=== PATIENT | female | born 1945 | race Caucasian/White ===

== ENCOUNTER → 2017-04-25 | Outpatient (CLI) | payer MEDICARE ==
[~2017-04-25] MED LIST: MECL25 PO; PREMPRO; WELLBUTRIN; [UNRECOGNIZED DRUG - REMARK]
== END | disposition home or self-care (01) ==
LOC: LAB 17:08
PROVIDERS: Hospitalist
DX: Z12.4 Encounter for screening for malignant neoplasm of cervix (principal)
CPT/HCPCS: G0145

== ENCOUNTER → 2017-12-14 | Outpatient (CLI) | payer MEDICARE ==
[2017-12-14 17:24] LABS: BASOPHILS ABSOLUTE AUTO 0.05 K/mm3 (0.00-0.23); BASOPHILS PERCENT AUTO 1 % (0-2); EOSINOPHILS ABSOLUTE AUTO 0.17 K/mm3 (0.00-0.68); EOSINOPHILS PERCENT AUTO 2 % (0-6); Hematocrit 37.2 % (33.0-51.0); Hemoglobin 12.1 g/dL (11.5-16.0); IMMATURE GRAN ABSOLUTE AUTO 0.03 K/mm3 (0.00-0.10); IMMATURE GRAN PERCENT AUTO 0 % (0-1); LYMPHOCYTES ABSOLUTE AUTO 2.55 K/mm3 (0.84-5.20); LYMPHOCYTES PERCENT AUTO 27 % (21-46); MONOCYTES ABSOLUTE AUTO 0.91 K/mm3 (0.16-1.47); MONOCYTES PERCENT AUTO 10 % (4-13); Mean Corpuscular HGB 29.5 pg (26.0-34.0); Mean Corpuscular HGB Conc 32.5 g/dL (31.5-36.5); Mean Corpuscular Volume 91 fL (80-100); Mean Platelet Volume 11.1 fL (9.1-12.4); NEUTROPHILS ABSOLUTE AUTO 5.65 K/mm3 (1.96-9.15); NEUTROPHILS PERCENT AUTO 61 % (41-73); Platelet Count 261 K/mm3 (150-400); RDW Coefficient Variation 13.5 % (11.7-14.2); RDW Standard Deviation 45.6 fL (35.1-46.3); White Blood Cell Count 9.36 K/mm3 (4.00-11.30)
== END ==
LOC: LAB 17:13 → LAB SHORT 17:13
PROVIDERS: Hospitalist
DX: R59.0 Localized enlarged lymph nodes (principal)
CPT/HCPCS: 85025; 85651

== ENCOUNTER 2019-04-19 13:03 | Day surgery (SDC) | payer MEDICARE ==
[~2019-04-19] VITALS: Ht 167.6 cm; Wt 69.9 kg
[~2019-04-19 13:03] MED LIST changes: +ACYC800 PO; +ALBU90OI INH; +Aspirin EC81 MG PO; +Omega 3 1,0001 EACH PO
== END 2019-04-19 15:10 | disposition home or self-care (01) ==
LOC: ORSCSDS 13:03
PROVIDERS: Surgery
PROC: 0DJD8ZZ Inspection of Lower Intestinal Tract, Via Natural or Artificial Opening Endoscopic (ICD-10-PCS; principal; 2019-04-19 14:15)
DX: R19.4 Change in bowel habit (principal); I95.9 Hypotension, unspecified; Z87.891 Personal history of nicotine dependence; J45.909 Unspecified asthma, uncomplicated; N18.3 Chronic kidney disease, stage 3 (moderate); E78.5 Hyperlipidemia, unspecified; Z79.82 Long term (current) use of aspirin; Z79.899 Other long term (current) drug therapy
CPT/HCPCS: J2704; J7120

== ENCOUNTER 2019-09-06 07:48 | Day surgery (SDC) | payer MEDICARE ==
[~2019-09-06] VITALS: Ht 167.6 cm; Wt 70.5 kg
[~2019-09-06 07:48] MED LIST changes: +ACYC200 PO; +ALPR.5 PO; +DONEPEZIL HCL10 MG PO; +ERGO50000 PO; +Estrace Vagin42.5 GM PV; +METR59TL; +PRAHYD1AE; +Sudogest30 MG PO
[2019-09-06] MEDS ORDERED: NORTHERA100 MG PO ×2 (09:12→09:13)
--- NOTE | 2019-09-06 15:07 | NUR ---
PT UP TO BATHROOM WITH SBA. R GROIN SITE STABLE. BACK TO BED AND GETTING DRESSED. GROIN SITE REMAINS STABLE T/O. DISCHARGE GONE OVER WITH PT AND PT VERBALIZES UNDERSTANDING. SALINE LOCK OUT WITH CATHETER INTACT. PT DISCHARGED PER W/C WITH 1 STAFF.
== END 2019-09-06 15:30 | disposition home or self-care (01) ==
LOC: MHTC 07:48
DX: I70.1 Atherosclerosis of renal artery (principal); Q61.01 Congenital single renal cyst; N18.3 Chronic kidney disease, stage 3 (moderate); E78.5 Hyperlipidemia, unspecified; I71.4 Abdominal aortic aneurysm, without rupture; Z87.891 Personal history of nicotine dependence; Z88.8 Allergy status to other drugs, medicaments and biological substances; Z79.82 Long term (current) use of aspirin; Z79.899 Other long term (current) drug therapy
CPT/HCPCS: 36252; 37236; 76937; 99152; 99153; A9270-GY; C1760; C1769; C1876; C1887; C1894; J1644; J2250; J3010; J7030; Q9967

== ENCOUNTER → 2020-02-26 | Outpatient (CLI) | payer MEDICARE ==
[~2020-02-26] MED LIST changes: +CLOP75 PO; -METR59TL; +METR59TL TOP; +MYRBETRIQ25 MG PO; +NORTHERA100 MG PO
== END | disposition home or self-care (01) ==
LOC: LAB 18:29 → LAB SHORT 18:29
DX: E55.9 Vitamin D deficiency, unspecified (principal); E53.8 Deficiency of other specified B group vitamins; R41.3 Other amnesia
CPT/HCPCS: 82306; 82607; 85651; 86592

== ENCOUNTER 2020-03-13 06:19 | Day surgery (SDC) | payer MEDICARE ==
[~2020-03-13] VITALS: Ht 167.6 cm; Wt 70.4 kg
--- NOTE | 2020-03-13 09:46 | NUR ---
PT RETURNED TO RECOVERY ROOM IN BED. LEFT RADIAL TR BAND SITE SOFT NON-TENDER WITH NO HEMATOMA, NO PULSATILE BLEEDING AND WRIST BOARD IN PLACE. RIGHT FEMORAL GROIN SITE SOFT NON-TENDER WITH NO HEMATOMA, NO BLEEDING AND INTACT DRESSING. RIGHT DP 2+. CALL LIGHT IN REACH.
--- NOTE | 2020-03-13 09:51 | NUR ---
PT EASILY AWAKENED; PT DENIES CHEST PAIN.
--- NOTE | 2020-03-13 10:31 | NUR ---
PT UNABLE TO VOID ON BED BREWER.
--- NOTE | 2020-03-13 10:44 | NUR ---
PT EATING BREAKFAST. NO CHANGES TO L TR BAND SITE OR R GROIN SITE EXCEPT PT DESCRIBE "SORENESS" R GROIN SITE BUT DENIES ANY SHARP BACK/FLANK PAIN. HOB ELEVATED.
--- NOTE | 2020-03-13 11:17 | NUR ---
PT HAD WALNUT-SIZED HEMATOMA RIGHT GROIN; ANGELINE GEORGE HELD MANUAL PRESSURE FOR FIVE MINUTES - R GROIN HEMATOMA RESOLVED. NO CHANGES TO LEFT TR BAND RADIAL SITE. R DP 2+ PULSE; PT DENIES ANY BACK/FLANK PAIN.
--- NOTE | 2020-03-13 11:31 | NUR ---
9 CC OF AIR REMOVED FROM LEFT TR BAND OVER 9 MIN TO NOW DEFLATED LEFT TR BAND. DISCHARGE INSTRUCTIONS REVIEWED AND ALL QUESTIONS ANSWERED. NO CHANGES TO RIGHT GROIN SITE.
--- NOTE | 2020-03-13 11:41 | NUR ---
PT UP TO BEDSIDE COMMODE TO VOID.
--- NOTE | 2020-03-13 12:55 | NUR ---
DEFLATED LEFT TR BAND REMOVED AND POLYMEM PLACED OVER LEFT RADIAL SITE WITH WRIST BOARD IN PLACE. NO CHANGES TO L RADIAL OR R GROIN SITES. PT AMBULATED TO BR TO VOID. 20 G IV DISCONTINUED FROM RIGHT AC WITH INTACT CANNULA. PT ESCORTED OUT VIA WHEELCHAIR ESCORT.
== END 2020-03-13 12:50 | disposition home or self-care (01) ==
LOC: MHTC 06:19
DX: I70.8 Atherosclerosis of other arteries (principal); I70.1 Atherosclerosis of renal artery; I71.4 Abdominal aortic aneurysm, without rupture; N18.30 Chronic kidney disease, stage 3 unspecified; E78.5 Hyperlipidemia, unspecified; D63.1 Anemia in chronic kidney disease; N25.81 Secondary hyperparathyroidism of renal origin; J45.909 Unspecified asthma, uncomplicated; G25.81 Restless legs syndrome; E55.9 Vitamin D deficiency, unspecified; Z88.8 Allergy status to other drugs, medicaments and biological substances; Z79.02 Long term (current) use of antithrombotics/antiplatelets; Z79.899 Other long term (current) drug therapy; Z91.09 Other allergy status, other than to drugs and biological substances; Z79.82 Long term (current) use of aspirin
CPT/HCPCS: 36140; 75710; 76937; 99152; 99153; C1760; C1769; C1887; C1894; J1644; J2250; J3010; J7030; Q9967

== ENCOUNTER 2020-05-01 06:26 | Day surgery (SDC) | payer OTHER ==
[~2020-05-01] VITALS: Ht 167.6 cm; Wt 69.0 kg
--- NOTE | 2020-05-01 13:14 | NUR ---
DISCHARGE PT REMAINED A&OX3 AND DENIED ANY PAIN DURING RECOVERY. L RADIAL SITE TR BAND REMOVED-CLOTH DOT AND WHITE BOARD IN PLACE.-CDI NO HEMATOMA NOTED. IV DC'D WITH CANULA IN TACT. PT ABLE TO ABULATE TO RESTROOM WITH STEADY GAIT. DISCHARGE PAPERWORK GONE OVER WITH PT. PT VERBALLY STATED THE UNDERSTANDING OF THE DISCHARGE EDUCATION AND DENIED ANY QUESTIONS AT THIS TIME. PT WHEELED OUT BY DORIS Rivera RN. TO PRIVATE CAR.
== END 2020-05-01 13:35 | disposition home or self-care (01) ==
LOC: MHTC 06:26
DX: I77.1 Stricture of artery (principal); I48.91 Unspecified atrial fibrillation; I08.0 Rheumatic disorders of both mitral and aortic valves
CPT/HCPCS: 37236; 75710; 76937; 99152; 99153; C1769; C1876; C1887; C1894; J1644; J2250; J3010; J7030; J7050; Q9967

== ENCOUNTER 2020-05-14 07:19 | Day surgery (SDC) | payer OTHER ==
[~2020-05-14] VITALS: Ht 170.2 cm; Wt 70.2 kg
[2020-05-14] MEDS ORDERED: ESCI10 (07:45)
== END 2020-05-14 08:57 | disposition home or self-care (01) ==
LOC: ORSCSDS 07:19
PROVIDERS: Ophthalmology
PROC: 08RJ3JZ Replacement of Right Lens with Synthetic Substitute, Percutaneous Approach (ICD-10-PCS; principal; 2020-05-14 08:30)
DX: H25.11 Age-related nuclear cataract, right eye (principal); E78.5 Hyperlipidemia, unspecified; J45.909 Unspecified asthma, uncomplicated; N18.9 Chronic kidney disease, unspecified; Z87.891 Personal history of nicotine dependence; Z79.899 Other long term (current) drug therapy
CPT/HCPCS: J2001; J2250; J3010; J3301; J7040; V2632

== ENCOUNTER → 2020-05-21 | Outpatient (CLI) | payer OTHER ==
[~2020-05-21] MED LIST changes: +ESCI10
[2020-05-21 16:00] LABS: Bun/Creatinine Ratio 15.7 (12.0-20.0); Calcium, Blood 8.8 mg/dL (8.5-10.1); Creatinine, Blood 1.21 mg/dL (0.40-1.00); Potassium, Blood 4.2 mmol/L (3.5-5.5)
== END | disposition home or self-care (01) ==
LOC: LAB SHORT 14:29 → LAB 14:29
PROVIDERS: Hospitalist
DX: G45.9 Transient cerebral ischemic attack, unspecified (principal)
CPT/HCPCS: 80048

== ENCOUNTER → 2020-08-21 | Outpatient (CLI) | payer OTHER ==
[2020-08-22 09:47] LABS: BASOPHILS ABSOLUTE AUTO 0.06 K/mm3 (0.00-0.23); BASOPHILS PERCENT AUTO 1 % (0-2); EOSINOPHILS ABSOLUTE AUTO 0.24 K/mm3 (0.00-0.68); EOSINOPHILS PERCENT AUTO 2 % (0-6); Hematocrit 39.6 % (33.0-51.0); Hemoglobin 12.7 g/dL (11.5-16.0); IMMATURE GRAN ABSOLUTE AUTO 0.11 K/mm3 (0.00-0.10); IMMATURE GRAN PERCENT AUTO 1 % (0-1); LYMPHOCYTES ABSOLUTE AUTO 1.73 K/mm3 (0.84-5.20); LYMPHOCYTES PERCENT AUTO 14 % (21-46); MONOCYTES ABSOLUTE AUTO 1.09 K/mm3 (0.16-1.47); MONOCYTES PERCENT AUTO 9 % (4-13); Mean Corpuscular HGB 29.1 pg (26.0-34.0); Mean Corpuscular HGB Conc 32.1 g/dL (31.5-36.5); Mean Corpuscular Volume 91 fL (80-100); Mean Platelet Volume 11.7 fL (9.1-12.4); NEUTROPHILS ABSOLUTE AUTO 9.07 K/mm3 (1.96-9.15); NEUTROPHILS PERCENT AUTO 74 % (41-73); Platelet Count 290 K/mm3 (150-400); RDW Coefficient Variation 13.9 % (11.7-14.2); RDW Standard Deviation 46.8 fL (35.1-46.3); Red Blood Cell Count 4.36 M/mm3 (3.80-5.20)
== END ==
LOC: LAB 13:36 → LAB SHORT 13:36
PROVIDERS: Hospitalist
DX: J33.9 Nasal polyp, unspecified (principal); I12.9 Hypertensive chronic kidney disease with stage 1 through stage 4 chronic kidney disease, or unspecified chronic kidney disease; Z91.048 Other nonmedicinal substance allergy status; Z91.041 Radiographic dye allergy status; Z88.8 Allergy status to other drugs, medicaments and biological substances
CPT/HCPCS: 85025

== ENCOUNTER 2021-02-13 07:51 | Day surgery (SDC) | payer OTHER ==
--- NOTE | 2021-02-13 08:48 | NUR ---
DR ETIENNE PLACED LINQ L STERNAL AREA UNDER SKIN. PT TOLERATED PROCEDURE WELL. -BLEEDING OR SWELLING. PT VERBALIZED UNDERSTANDING OF WRITTEN AND VERBAL D/C INST. PT TAKEN OUT OF THE HRT CENTER VIA W/C.
== END 2021-02-13 23:36 | disposition home or self-care (01) ==
LOC: MHTC 07:51
DX: R55 Syncope and collapse (principal); I12.9 Hypertensive chronic kidney disease with stage 1 through stage 4 chronic kidney disease, or unspecified chronic kidney disease; N18.30 Chronic kidney disease, stage 3 unspecified; E78.5 Hyperlipidemia, unspecified; J45.909 Unspecified asthma, uncomplicated; Z88.8 Allergy status to other drugs, medicaments and biological substances; Z79.899 Other long term (current) drug therapy
CPT/HCPCS: 33285; C1764

== ENCOUNTER → 2021-09-08 | Outpatient (CLI) | payer OTHER ==
[2021-09-08 15:10] LABS: BASOPHILS ABSOLUTE AUTO 0.04 K/mm3 (0.00-0.23); BASOPHILS PERCENT AUTO 0 % (0-2); EOSINOPHILS PERCENT AUTO 2 % (0-6); Hematocrit 38.3 % (33.0-51.0); IMMATURE GRAN ABSOLUTE AUTO 0.04 K/mm3 (0.00-0.10); IMMATURE GRAN PERCENT AUTO 0 % (0-1); LYMPHOCYTES ABSOLUTE AUTO 1.85 K/mm3 (0.84-5.20); LYMPHOCYTES PERCENT AUTO 19 % (21-46); MONOCYTES ABSOLUTE AUTO 0.71 K/mm3 (0.16-1.47); MONOCYTES PERCENT AUTO 7 % (4-13); Mean Corpuscular HGB Conc 31.3 g/dL (31.5-36.5); Mean Corpuscular Volume 89 fL (80-100); Mean Platelet Volume 10.9 fL (9.1-12.4); NEUTROPHILS PERCENT AUTO 71 % (41-73); Platelet Count 256 K/mm3 (150-400); RDW Coefficient Variation 15.1 % (11.7-14.2); RDW Standard Deviation 49.3 fL (35.1-46.3); Red Blood Cell Count 4.29 M/mm3 (3.80-5.20); White Blood Cell Count 9.64 K/mm3 (4.00-11.30)
[2021-09-08 15:16] LABS: Albumin, Blood 3.1 g/dL (3.4-5.0); Albumin/Globulin Ratio 0.8 (0.8-1.8); Bilirubin, Total 0.4 mg/dL (0.1-1.0); Bun/Creatinine Ratio 15.1 (12.0-20.0); Calcium, Blood 8.6 mg/dL (8.5-10.1); Creatinine, Blood 1.26 mg/dL (0.40-1.00); Globulin, Blood 3.8 g/dL (2.2-4.0); Thyroid Stimulating Hormone 1.46 uIU/mL (0.360-4.800); Total Protein, Blood 6.9 g/dL (6.4-8.2)
== END ==
LOC: LAB SHORT 10:10
PROVIDERS: Hospitalist
DX: G25.3 Myoclonus (principal); R53.83 Other fatigue
CPT/HCPCS: 80053; 84443; 85025; 85651

== ENCOUNTER → 2021-11-14 | Outpatient (CLI) | payer OTHER ==
[2021-11-14 17:11] LABS: Source, Urine Clean Catch
[2021-11-14 17:15] LABS: Bacteria Few /hpf; Red Blood Cells, Urine Not Seen /hpf (0-2); Squamous Epithelial Cells Rare /hpf (Few)
== END | disposition home or self-care (01) ==
LOC: LAB 17:09 → LAB SHORT 17:09
PROVIDERS: General Practice
DX: N39.0 Urinary tract infection, site not specified (principal)
CPT/HCPCS: 81015; 87086

== ENCOUNTER → 2021-11-30 | Outpatient (CLI) | payer OTHER ==
[2021-11-30 18:38] LABS: BASOPHILS ABSOLUTE AUTO 0.05 K/mm3 (0.00-0.23); BASOPHILS PERCENT AUTO 0 % (0-2); EOSINOPHILS ABSOLUTE AUTO 0.17 K/mm3 (0.00-0.68); EOSINOPHILS PERCENT AUTO 1 % (0-6); Hematocrit 37.7 % (33.0-51.0); IMMATURE GRAN ABSOLUTE AUTO 0.07 K/mm3 (0.00-0.10); IMMATURE GRAN PERCENT AUTO 1 % (0-1); LYMPHOCYTES ABSOLUTE AUTO 2.55 K/mm3 (0.84-5.20); LYMPHOCYTES PERCENT AUTO 21 % (21-46); MONOCYTES ABSOLUTE AUTO 1.14 K/mm3 (0.16-1.47); MONOCYTES PERCENT AUTO 10 % (4-13); Mean Corpuscular HGB 27.5 pg (26.0-34.0); Mean Corpuscular HGB Conc 31.8 g/dL (31.5-36.5); Mean Corpuscular Volume 87 fL (80-100); Mean Platelet Volume 10.6 fL (9.1-12.4); NEUTROPHILS ABSOLUTE AUTO 8.07 K/mm3 (1.96-9.15); NEUTROPHILS PERCENT AUTO 67 % (41-73); Platelet Count 322 K/mm3 (150-400); RDW Coefficient Variation 14.8 % (11.7-14.2); RDW Standard Deviation 47.4 fL (35.1-46.3); Red Blood Cell Count 4.36 M/mm3 (3.80-5.20); White Blood Cell Count 12.05 K/mm3 (4.00-11.30)
[2021-11-30 19:14] LABS: Albumin, Blood 3.1 g/dL (3.4-5.0); Albumin/Globulin Ratio 0.8 (0.8-1.8); Bilirubin, Total 0.4 mg/dL (0.1-1.0); Bun/Creatinine Ratio 12.7 (12.0-20.0); Calcium, Blood 8.7 mg/dL (8.5-10.1); Creatinine, Blood 1.26 mg/dL (0.40-1.00); Globulin, Blood 3.9 g/dL (2.2-4.0); Potassium, Blood 3.9 mmol/L (3.5-5.5)
== END | disposition home or self-care (01) ==
LOC: LAB 14:45 → LAB SHORT 14:45
PROVIDERS: Hospitalist
DX: R29.6 Repeated falls (principal)
CPT/HCPCS: 80053; 85025

== ENCOUNTER → 2021-12-03 | Outpatient (CLI) | payer OTHER | END | disposition home or self-care (01) | LOC: LAB 15:20 → LAB SHORT 15:20 | DX: D72.829 Elevated white blood cell count, unspecified (principal) | CPT/HCPCS: 87086 ==